=== PATIENT | male | born 1995 | race Caucasian/White ===

== ENCOUNTER 2024-08-30 00:19 | Emergency (ER) | payer OTHER ==
[~2024-08-30] VITALS: Ht 177.8 cm; Wt 59.9 kg
[2024-08-30] MEDS: LIDOCAINE 1% HCL (LOCAL ANESTH.) INJ 20ML MDV ID ONE (00:49)
[2024-08-30] MEDS: TETANUS-DIPTH-ACEL PERTUSSIS 0.5ML SYR Tdap IM ONE (01:11)
--- NOTE | 2024-08-30 01:11 | ED.PDOC ---
HPI Comments THIS IS A 29-YEAR-OLD MALE PATIENT CHIEF COMPLAINT LACERATION TO RIGHT HAND. 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 BLEEDING CONTROLLED. NOTES NO OTHER KNOWN INJURY. DENIES NUMBNESS OR WEAKNESS Chief Complaint: Upper Extremity Time Seen by MD: 00:21 Reviewed Notes: Nurses Notes, Medications, Allergies Allergies: Coded Allergies: NO KNOWN ALLERGIES (Unverified , 08/30/24) Home Meds Active Scripts Amoxicillin & Pot Clavulanate (AUGMENTIN TABLET) 875 Mg Tb, 1 TAB PO BID for 5 Days, #10 TAB Prov:JUNIE SIDHU [employer]PERATIONS MANAGER 08/30/24 Information Source: Patient Mode of Arrival: Ambulatory Complexity: Simple Laceration Length (cm): 2 Constitutional: denies: chills, diaphoresis, fatigue, fever, malaise, sweats, weakness, others EENTM: denies: blurred vision, double vision, ear bleeding, ear discharge, ear drainage, ear pain, ear ringing, eye pain, eye redness, hearing loss, mouth pain, mouth swelling, nasal discharge, nose bleeding, nose congestion, nose pain, photophobia, tearing, throat pain, throat swelling, voice changes, others Cardiovascular: denies: chest pain, dizzy spells, diaphoresis, Dyspnea on exertion, edema, irregular heart beat, left arm pain, lightheadedness, palpitations, PND, syncope, others Gastrointestinal: denies: abdomen distended, abdominal pain, blood streaked bowels, constipated, diarrhea, dysphagia, difficulty swallowing, hematemesis, melena, nausea, poor appetite, poor fluid intake, rectal bleeding, rectal pain, vomiting, others Genitourinary: denies: burning, dysuria, flank pain, frequency, hematuria, incontinence, penile discharge, penile sore, pain, testicle pain, testicle swelling, urgency, others Neurological: denies: dizziness, fainting, headache, left sided numbness, left sided weakness, numbness, paresthesia, pre-existing deficit, right sided numbness, right sided weakness, seizure, speech problems, tingling, tremors, weakness, others Musculoskeletal: denies: back pain, gout, joint pain, joint swelling, muscle pain, muscle stiffness, neck pain, others Integumetry: reports: laceration (RIGHT PALM OF HAND); denies: bruises, change in color, change in hair/nails, dryness, lesions, lumps, rash, wounds, others Allergic/Immunocompromised: denies: Difficulty Healing, Frequent Infections, Hives, Itching, others Hematologic/Lymphatic: denies: anemia, blood clots, easy bleeding, easy bruising, swollen glands, others Psychiatric: denies: anxiety, bipolar disorder, depression, hopeless, panic disorder, schizophrenia, sleepless, suicidal, others Physical Exam General Appearance: No Apparent Distress, Normal HEENT: Pharynx Normal Neck: Full Range of Motion, Non-Tender Respiratory: Lungs Clear, No Respiratory Distress, Normal Breath Sounds Cardiovascular: No Murmur, Normal Peripheral Pulses, Regular Rate/Rhythm Breast Exam: Deferred Gastrointestinal: Non Tender, Soft Genitalia: Deferred Pelvic: Deferred Rectal: Deferred Extremities: Normal capillary refill, Normal inspection, Normal range of motion Musculoskeletal : Apperance: Normal Neurologic: Alert, driver guide II-XII nml as Tested, No Motor Deficits, Normal Affect, Normal Mood, No Sensory Deficits Cerebellar Function: Normal Reflexes: Normal Skin: Dry, Lacerations (2 CM LACERATION TO RIGHT ANTERIOR PALM OF HAND BLEEDING CONTROLLED NO NOTED FOREIGN BODIES), Normal Color, Warm Lymphatic: No Adenopathy Was a procedure done? Was a procedure done?: Yes Sedation Sedation?: No Informed consent obtained: Yes Laceration Repair : Location Right hand anterior palmar aspect Length 2 cm Anesthetic: Lidocaine, Without epi Laceration Repair Prep: Saline, Betadine Laceration Repair Wound Comple: epidermis/dermis repair Laceration Repair: Number of sutures (3), Simple, Non-adherent gauze Informed consent obtained: Yes Risks, benefits, and alternati: Yes Notes Patient tolerated well with minimal blood loss. Differential diagnosis Generic Laceration: Laceration X-Ray, Labs, Meds, VS Vital Signs Date Time Temp Pulse Resp B/P (MAP) Pulse Ox O2 Delivery O2 Flow Rate FiO2 08/30/24 01:24 60 18 96 Room Air 08/30/24 01:24 60 18 121/82 (95) 96 08/30/24 00:39 98.0 98 18 122/75 (91) 100 Current Medications Medications (Trade) Dose Ordered Sig/Sherita Route Start Time Stop Time Status Last Admin Diphtheria/ Tetanus/Acell Pertussis (Boostrix T-Dap) 0.5 ml ONCE ONCE IM 08/30/24 00:45 08/30/24 00:46 DC 08/30/24 01:11 X-Ray, Labs, Meds, VS Comment Laceration repair with good approximation see procedure note. Patient is started on prophylactic antibiotics. Worker's comp paperwork completed advised to follow up with occupational health for going back to work. Advised suture removal within 5-7 days at urgent care, occupational health or back here in the ER or his primary care provider's office. ER precautions given advised to monitor for uncontrolled bleeding, signs of infection. [id number] Tylenol or Motrin as needed for pain per labeled dosing instructions. Patient agrees with discharge plan of care. Time of 1ST Reevaluation: 01:30 Reevaluation 1ST: Improved Patient Education/Counseling: Diagnosis, Treatment, Prognosis, Need For Follow Up Family Education/Counseling: No Family Present Departure 1 Departure Time of Disposition: 01:07 Impression: Primary Impression: Laceration of hand Qualified Codes: S61.411A - Laceration without foreign body of right hand, initial encounter Disposition: 01 HOME / SELF CARE / HOMELESS Condition: Stable e-Prescriptions Amoxicillin & Pot Clavulanate (AUGMENTIN TABLET) 875 Mg Tb 1 TAB PO BID for 5 Days, #10 TAB Prov: JUNIE SIDHU 08/30/24 Discharged With: Self Critical Care Note Critical Care Time?: No Stability Stability form required: JUNIE Cano Aug 30, 2024 01:11
[2024-08-30 01:24] VITALS: BP 121/82; PULSE 60; RESP 18; O2SAT 96
[2024-08-30] MEDS ORDERED: AUG875T PO (01:30)
== END 2024-08-30 01:40 | disposition home or self-care (01) ==
LOC: ER 00:19
DX: S61.411A Laceration without foreign body of right hand, initial encounter (principal); W26.9XXA Contact with unspecified sharp object(s), initial encounter; Y93.89 Activity, other specified; Y92.69 Other specified industrial and construction area as the place of occurrence of the external cause; Y99.8 Other external cause status
CPT/HCPCS: 12001; 90471; 90715; 99283; J2003